=== PATIENT | female | born 1995 | race Caucasian/White ===

== ENCOUNTER 2016-11-21 03:46 | Emergency (ER) | payer OTHER ==
[2016-11-21 03:52] VITALS: TEMP 98.6
[2016-11-21 04:21] VITALS: RESP 20
[2016-11-21] MEDS ORDERED: IBUPROFEN 200 MG TAB PO ONE (04:32)
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
[2016-11-21 05:42] LABS: COLOR YELLOW; LEUKOCYTE ESTERASE,URINE 3+ (NEGATIVE); NITRITE,URINE NEGATIVE (NEGATIVE)
[2016-11-21 05:48] LABS: WBC,URINE 50-182 /hpf (0-3)
[2016-11-21] MEDS ORDERED: NITROFURANTOIN MACROBID 100 MG CAP PO ONE (06:04)
[2016-11-21] MEDS ORDERED: PHENAZOPYRIDINE HCL 200 MG TAB PO ONE (06:04)
[2016-11-21] MEDS ORDERED: NITROFURANTOIN 100MG PREPACK#2 BTL TAKEHOME ONE (06:04)
[2016-11-21 06:36] VITALS: BP 111/73; PULSE 101; O2SAT 95
[2016-11-21 14:20] LABS: CHLAMYDIA AMPLIFICATION GENPRB NEGATIVE (NEGATIVE)
== END 2016-11-21 06:35 | disposition home or self-care (01) ==
DX: N39.0 Urinary tract infection, site not specified (principal); B96.89 Other specified bacterial agents as the cause of diseases classified elsewhere; R51 Headache